=== PATIENT | male | born 1995 | race Caucasian/White ===

== ENCOUNTER 2018-04-20 11:14 | Emergency (ER) | payer OTHER ==
[~2018-04-20] VITALS: Ht 180.3 cm; Wt 64.6 kg
[2018-04-20 12:28] VITALS: BP 123/71
== END 2018-04-20 12:29 | disposition home or self-care (01) ==
LOC: EME 11:14
DX: S90.112A Contusion of left great toe without damage to nail, initial encounter (principal); W20.8XXA Other cause of strike by thrown, projected or falling object, initial encounter
CPT/HCPCS: 73660; 99281; 99283